=== PATIENT | female | born 1960 | race Caucasian/White ===

== ENCOUNTER 2018-05-20 11:56 | Emergency (ER) | payer OTHER ==
[~2018-05-20] VITALS: Ht 162.6 cm; Wt 63.5 kg
[2018-05-20] MEDS ORDERED: SODIUM CHLORIDE 0.9% 1,000 ML IV ONE (12:03)
[2018-05-20 12:28] LABS: Basophils # (auto) 0 uL; Basophils % (auto) 0.6 % (0.0-2.0); Eosinophils # (auto) 0.1 uL; Eosinophils % (auto) 1.7 % (0.0-7.0); Hematocrit 38.4 % (36.0-46.0); Hemoglobin 13.2 g/dL (12.2-16.2); Mean Corpuscular Hemoglobin 31.6 pg (28.0-32.0); Mean Corpuscular Hgb Conc. 34.5 g/dL (32.0-36.0); Mean Corpuscular Volume 91.6 fL (80.0-100.0); Monocytes # (auto) 0.6 uL; Neutrophils # (auto) 3.8 uL; Neutrophils % (auto) 58.7 % (37.0-80.0); Platelet Count (auto) 239 10^3/uL (140-450); Red Blood Cells 4.19 10^6/uL (4.0-5.20); Red Cell Distribution Width 12.9 % (11.8-14.3); White Blood Cell 6.5 10^3/uL (4.4-10.8)
[2018-05-20 13:04] LABS: Blood Urea Nitrogen 15 mg/dL (7-18); Chloride 100 mmol/L (98-107); Potassium 3.3 mmol/L (3.5-5.1); Sodium 136 mmol/L (136-145)
[2018-05-20 13:08] LABS: Alanine Aminotransferase 28 U/L (13-56); Albumin 4.3 g/dL (3.4-5.0); Anion Gap 9 (5-15); Aspartate Aminotransferase 27 U/L (15-37); BUN/Creatinine Ratio 10.6; Blood Alcohol < 3.0 mg/dL (0-5); Calcium 9.1 mg/dL (8.5-10.1); Carbon Dioxide 27 mmol/L (21-32); GFR African American 49 mL/min; GFR Non-African American 40 mL/min; Glucose 104 mg/dL (74-106)
[2018-05-20 13:10] LABS: Alkaline Phosphatase 58 U/L (45-117); Bilirubin, Total 0.8 mg/dL (0.2-1.0); Total Protein 7.9 g/dL (6.4-8.2)
[2018-05-20 13:11] LABS: Alcohol, Urine < 3.0 mg/dL (0-5); Amphetamine Screen, Urine NEGATIVE (NEGATIVE); Barbiturate Scree,Urine NEGATIVE (NEGATIVE); Benzodiazephine Screen, Urine NEGATIVE (NEGATIVE); Cannabinoid Screen, Urine POSITIVE (NEGATIVE); Cocaine Screen, Urine NEGATIVE (NEGATIVE); Opiate Scree,Urine NEGATIVE (NEGATIVE); Phencyclidine Screen, Urine NEGATIVE (NEGATIVE)
[2018-05-20 13:12] LABS: Salicylate < 1.7 mg/dL (2.8-20.0)
[2018-05-20 13:14] LABS: Acetaminophen < 2.0 ug/mL (10-30)
[2018-05-20] MEDS ORDERED: ALPRAZolam 0.5 MG TAB PO ONE (18:30)
[2018-05-20 22:33] VITALS: BP 134/75
[2018-05-21] MEDS ORDERED: QUEtiapine FUMARATE 25 MG TAB PO ONE (07:00)
[2018-05-21] MEDS ORDERED: QUEtiapine FUMARATE 100 MG TAB PO ONE (18:00)
== END 2018-05-20 22:33 | disposition short-term general hospital (02) ==
LOC: EDBD 11:56 → ER 11:56
DX: R45.851 Suicidal ideations (principal); F10.10 Alcohol abuse, uncomplicated; F20.9 Schizophrenia, unspecified; I50.9 Heart failure, unspecified; F31.9 Bipolar disorder, unspecified; F17.210 Nicotine dependence, cigarettes, uncomplicated; F12.90 Cannabis use, unspecified, uncomplicated; Z90.49 Acquired absence of other specified parts of digestive tract; Z90.710 Acquired absence of both cervix and uterus
CPT/HCPCS: 36415; 80053; 80307; 80320; 80329; 85025; 94761

== ENCOUNTER 2022-01-03 06:52 | Inpatient (IN) | payer OTHER ==
[~2022-01-03] VITALS: Ht 165.1 cm; Wt 80.0 kg
[2022-01-03] MEDS ORDERED: ONDANSETRON HCL 4 MG/2 ML VIAL IV ONE (08:00)
[2022-01-03] MEDS ORDERED: SODIUM CHLORIDE 0.9% 1,000 ML IV ONE (08:00)
[2022-01-03] MEDS ORDERED: HYDROmorphone HCL 2 MG/ML VL/or syr IV ONE (08:00)
[2022-01-03 08:22] LABS: Basophils # (auto) 0 10 ^3/uL (0-0.2); Basophils % (auto) 0.1 % (0.0-2.0); Eosinophils # (auto) 0 10 ^3/uL (0-0.8); Eosinophils % (auto) 0.1 % (0.0-7.0); Hematocrit 38.2 % (36.0-46.0); Hemoglobin 12.8 g/dL (12.2-16.2); Lymphocytes # (auto) 1.4 10 ^3/uL (0.4-5.4); Mean Corpuscular Hemoglobin 31.4 pg (28.0-32.0); Mean Corpuscular Hgb Conc. 33.6 g/dL (32.0-36.0); Mean Corpuscular Volume 93.6 fL (80.0-100.0); Monocytes # (auto) 0.7 10 ^3/uL (0-1.3); Monocytes % (auto) 7.5 % (0.0-12.0); Neutrophils % (auto) 77.3 % (37.0-80.0); Red Blood Cells 4.08 10^6/uL (4.0-5.20); Red Cell Distribution Width 14.7 % (11.8-14.3); White Blood Cell 9.1 10^3/uL (4.4-10.8)
[2022-01-03 08:23] LABS: Albumin 3.8 g/dL (3.4-5.0); Calcium 8.6 mg/dL (8.5-10.1); Potassium 3.9 mmol/L (3.5-5.1)
[2022-01-03 08:26] LABS: BUN/Creatinine Ratio 16.9; Bilirubin, Total 0.6 mg/dL (0.2-1.0); Total Protein 7.2 g/dL (6.4-8.2)
[2022-01-03 08:30] LABS: INR 0.99 (0.9-1.15); Partial Thromboplastin Time 24.4 sec (23.6-33.0)
[2022-01-03] MEDS ORDERED: SODIUM CHLORIDE 0.9% 1,000 ML IV SCH (11:00)
[2022-01-03] MEDS ORDERED: DOCUSATE SOD 100 MG CAP PO PRN (11:00)
[2022-01-03] MEDS ORDERED: HEPARIN SODIUM (PORCINE) 5000 UNITS/ML 1ML VIAL IV ONE ×2 (11:00→12:00)
[2022-01-03] MEDS ORDERED: ONDANSETRON HCL 4 MG/2 ML VIAL IV PRN (11:00)
[2022-01-03] MEDS ORDERED: NITROGLYCERIN 0.4 MG SL TAB SL PRN (11:00)
[2022-01-03] MEDS ORDERED: ALUM & MAG HYDROX-SIMETH LIQ(MAALOX) 30 ML PO PRN (11:00)
[2022-01-03] MEDS ORDERED: ACETAMINOPHEN 325 MG TAB PO PRN (11:00)
[2022-01-03] MEDS ORDERED: MORPHINE SULFATE INJ 2 MG/ml SYRG IV PRN (11:00)
[2022-01-03] MEDS: HYDROcodone-ACET 5/325MG TAB PO PRN ×2 (11:25→19:31)
[2022-01-03 11:30] LABS: Urine Bacteria NONE SEEN /hpf (None Seen); Urine Blood Negative /uL (Negative); Urine Mucus FEW (None Seen); Urine Specific Gravity 1.022 (1.001-1.035); Urine WBC 13 /hpf (0 - 5)
[2022-01-03] MEDS ORDERED: HEPARIN DRIP/D5W 100UNITS/ML 250 ML IV SCH (11:45)
[2022-01-03] MEDS ORDERED: ASPirin 325 MG TAB PO ONE (12:00)
[2022-01-03] MEDS ORDERED: DEXTROSE (50%) 50ML SYRG IV PRN (12:00)
[2022-01-03 12:51] LABS: Cholesterol 168 mg/dL (< 200)
[2022-01-03 12:54] LABS: HDL Cholesterol 79 mg/dL (40-59); LDL Cholesterol 62 mg/dL (< 100); Triglycerides 251 mg/dL (< 150)
[2022-01-03 13:52] LABS: Amphetamine Screen, Urine NEGATIVE (NEGATIVE); Barbiturate Scree,Urine NEGATIVE (NEGATIVE); Benzodiazephine Screen, Urine NEGATIVE (NEGATIVE); Cannabinoid Screen, Urine POSITIVE (NEGATIVE); Cocaine Screen, Urine NEGATIVE (NEGATIVE); Opiate Scree,Urine NEGATIVE (NEGATIVE); Phencyclidine Screen, Urine NEGATIVE (NEGATIVE)
[2022-01-03] MEDS ORDERED: RIS1T PO (13:52)
[2022-01-03] MEDS ORDERED: BUPR200T2 PO (13:52)
[2022-01-03] MEDS ORDERED: OLME20TA53 PO (13:52)
[2022-01-03] MEDS ORDERED: FAMO-68 PO (13:52)
[2022-01-03] MEDS ORDERED: ESCI20TA PO (13:52)
[2022-01-03] MEDS ORDERED: OXCA600T3 PO (13:52)
[2022-01-03] MEDS ORDERED: ROSU5TAB5 PO (13:52)
[2022-01-03] MEDS ORDERED: FOLIC ACID 1 MG, MULTIPLE VITAMIN 10 ML, MAGNESIUM SULF SDV 50% 8 MEQ, THIAMINE INJ 100... INJ ONE ×5 (14:45)
[2022-01-03] MEDS: MORPHINE SULFATE INJ 2 MG/ml SYRG IV PRN ×2 (16:08→21:58)
[2022-01-03] MEDS: InsuLIN REG 1unit/0.01ml Soln (100units/ml) SC SCH ×2 (17:00→21:56)
[2022-01-03] MEDS: ACCU-CHEK COMFORT CURVE STRIP VI SCH ×2 (19:15→21:57)
[2022-01-03 19:16] VITALS: BP 130/67
[2022-01-03] MEDS: HEPARIN SODIUM (PORCINE) 5000 UNITS/ML 1ML VIAL SC SCH (21:59)
[2022-01-03 22:00] VITALS: BP 115/62
[2022-01-03] MEDS ORDERED: CARVEDILOL 3.125 MG TAB PO SCH (22:00)
[2022-01-03] MEDS ORDERED: TEMAZEPAM 15 MG CAP PO ONE (23:45)
[2022-01-04] VITALS (7 sets, daily range): BP systolic 125–147; BP diastolic 64–87
[2022-01-04] MEDS: HYDROcodone-ACET 5/325MG TAB PO PRN ×5 (00:34→21:53)
[2022-01-04] MEDS: MORPHINE SULFATE INJ 2 MG/ml SYRG IV PRN ×2 (03:40→08:17)
[2022-01-04] MEDS: ACCU-CHEK COMFORT CURVE STRIP VI SCH ×2 (05:55→11:07)
[2022-01-04] MEDS: InsuLIN REG 1unit/0.01ml Soln (100units/ml) SC SCH ×2 (05:55→11:08)
[2022-01-04] MEDS: ASPirin 81 mg TAB PO SCH (10:24)
[2022-01-04] MEDS: ATORVASTATIN 20 MG TAB PO SCH (10:24)
[2022-01-04] MEDS: HEPARIN SODIUM (PORCINE) 5000 UNITS/ML 1ML VIAL SC SCH ×2 (10:28→21:42)
[2022-01-04] MEDS: HYDROmorphone HCL 2 MG/ML VL/or syr IV PRN ×2 (13:19→18:54)
[2022-01-04] MEDS ORDERED: SODIUM CHLORIDE 0.9% 1,000 ML IV SCH (15:45)
[2022-01-05] MEDS: HYDROmorphone HCL 2 MG/ML VL/or syr IV PRN ×4 (02:05→16:24)
[2022-01-05 05:00] VITALS: BP 123/73
[2022-01-05 07:44] LABS: Basophils # (auto) 0 10 ^3/uL (0-0.2); Basophils % (auto) 0.5 % (0.0-2.0); Eosinophils # (auto) 0.1 10 ^3/uL (0-0.8); Eosinophils % (auto) 1.9 % (0.0-7.0); Hematocrit 28.7 % (36.0-46.0); Hemoglobin 9.6 g/dL (12.2-16.2); Lymphocytes # (auto) 1.6 10 ^3/uL (0.4-5.4); Lymphocytes % (auto) 27.5 % (10.0-50.0); Mean Corpuscular Hemoglobin 31.3 pg (28.0-32.0); Mean Corpuscular Hgb Conc. 33.6 g/dL (32.0-36.0); Monocytes # (auto) 0.5 10 ^3/uL (0-1.3); Monocytes % (auto) 9.6 % (0.0-12.0); Neutrophils # (auto) 3.5 10 ^3/uL (1.6-8.6); Neutrophils % (auto) 60.5 % (37.0-80.0); Red Blood Cells 3.08 10^6/uL (4.0-5.20); White Blood Cell 5.7 10^3/uL (4.4-10.8)
[2022-01-05 08:04] LABS: BUN/Creatinine Ratio 20.9; Calcium 8.2 mg/dL (8.5-10.1); Magnesium 2.2 mg/dL (1.6-2.6); Potassium 3.4 mmol/L (3.5-5.1)
[2022-01-05 08:50] VITALS: BP 124/73
[2022-01-05] MEDS: HYDROcodone-ACET 5/325MG TAB PO PRN ×2 (09:26→19:55)
[2022-01-05] MEDS: SACUBITRIL-VALSARTAN 24mg/26mg TAB PO SCH ×2 (10:00→21:42)
[2022-01-05] MEDS ORDERED: POTASSIUM CHL 20 Meq TABLET PO ONE (10:00)
[2022-01-05] MEDS ORDERED: OXCA300T26 PO (14:27)
[2022-01-05] MEDS ORDERED: OLME1TAB69 PO (14:27)
[2022-01-05] MEDS ORDERED: BUPR300T28 PO (14:27)
[2022-01-05] MEDS: SODIUM CHLORIDE 0.9% 1,000 ML IV SCH (14:45)
[2022-01-05] MEDS: FOLIC ACID 1 MG, MULTIPLE VITAMIN 10 ML, MAGNESIUM SULF SDV 50% 8 MEQ, THIAMINE INJ 100... INJ SCH ×5 (16:00)
[2022-01-05] MEDS: ASPirin 81 mg TAB PO SCH (16:10)
[2022-01-05] MEDS: ATORVASTATIN 20 MG TAB PO SCH (16:15)
[2022-01-05] MEDS: HEPARIN SODIUM (PORCINE) 5000 UNITS/ML 1ML VIAL SC SCH ×2 (16:20→21:43)
[2022-01-05 17:58] VITALS: BP 126/72
[2022-01-05] MEDS: buPROPion HCL 75 MG TAB PO SCH (18:29)
[2022-01-05] MEDS: OXcarbazepine 300 MG TAB PO SCH (21:42)
[2022-01-05] MEDS: LORazepam 0.5 MG TAB PO PRN (21:58)
[2022-01-05 22:00] VITALS: BP 136/60
[2022-01-06] MEDS: HYDROcodone-ACET 5/325MG TAB PO PRN ×5 (01:51→20:48)
[2022-01-06] MEDS: SODIUM CHLORIDE 0.9% 1,000 ML IV SCH (01:51)
[2022-01-06 05:00] VITALS: BP 121/66
[2022-01-06] MEDS: buPROPion HCL 75 MG TAB PO SCH ×2 (05:43→18:47)
[2022-01-06 06:51] LABS: Hematocrit 25.6 % (36.0-46.0); Hemoglobin 9.1 g/dL (12.2-16.2)
[2022-01-06 07:06] LABS: BUN/Creatinine Ratio 14.1; Calcium 8.7 mg/dL (8.5-10.1); Magnesium 2.2 mg/dL (1.6-2.6); Potassium 3.4 mmol/L (3.5-5.1)
[2022-01-06 09:00] VITALS: BP 116/67
[2022-01-06] MEDS: OXcarbazepine 300 MG TAB PO SCH ×2 (09:28→23:54)
[2022-01-06] MEDS: ATORVASTATIN 20 MG TAB PO SCH (09:28)
[2022-01-06] MEDS: risperiDONE 1 MG TAB PO SCH (09:29)
[2022-01-06] MEDS: SACUBITRIL-VALSARTAN 24mg/26mg TAB PO SCH ×2 (09:29→23:54)
[2022-01-06] MEDS: ASPirin 81 mg TAB PO SCH (09:29)
[2022-01-06] MEDS: HEPARIN SODIUM (PORCINE) 5000 UNITS/ML 1ML VIAL SC SCH ×2 (09:32→23:55)
[2022-01-06] MEDS ORDERED: POTASSIUM CHL 20 Meq TABLET PO ONE (12:30)
[2022-01-06] MEDS ORDERED: PANTOPRAZOLE 40 MG/10 ML VIAL INJ IV ONE (12:45)
[2022-01-06 13:00] VITALS: BP 101/52
[2022-01-06] MEDS: FOLIC ACID 1 MG, MULTIPLE VITAMIN 10 ML, MAGNESIUM SULF SDV 50% 8 MEQ, THIAMINE INJ 100... INJ SCH ×5 (14:19)
[2022-01-06 15:35] LABS: % Iron Saturation 8.3 % (15-50)
[2022-01-06 17:00] VITALS: BP 94/55
[2022-01-06] MEDS: HYDROmorphone HCL 2 MG/ML VL/or syr IV PRN (18:17)
[2022-01-06 22:00] VITALS: BP 102/59
[2022-01-07] MEDS: HYDROcodone-ACET 5/325MG TAB PO PRN ×2 (01:59→06:33)
[2022-01-07 05:00] VITALS: BP 110/62
[2022-01-07] MEDS: buPROPion HCL 75 MG TAB PO SCH ×2 (06:34→18:39)
[2022-01-07 08:27] LABS: Hematocrit 28.5 % (36.0-46.0); Hemoglobin 9.5 g/dL (12.2-16.2)
[2022-01-07 08:32] LABS: Magnesium 2.1 mg/dL (1.6-2.6); Potassium 3.6 mmol/L (3.5-5.1)
[2022-01-07] MEDS: HYDROmorphone HCL 2 MG/ML VL/or syr IV PRN ×4 (08:38→21:43)
[2022-01-07 09:11] VITALS: BP 147/74
[2022-01-07] MEDS: risperiDONE 1 MG TAB PO SCH (09:15)
[2022-01-07] MEDS: PANTOPRAZOLE 40 MG/10 ML VIAL INJ IV SCH (09:15)
[2022-01-07] MEDS: ASPirin 81 mg TAB PO SCH (09:15)
[2022-01-07] MEDS: ATORVASTATIN 20 MG TAB PO SCH (09:16)
[2022-01-07] MEDS: OXcarbazepine 300 MG TAB PO SCH ×2 (09:16→21:30)
[2022-01-07] MEDS: HEPARIN SODIUM (PORCINE) 5000 UNITS/ML 1ML VIAL SC SCH ×2 (09:18→21:29)
[2022-01-07] MEDS: SACUBITRIL-VALSARTAN 24mg/26mg TAB PO SCH ×2 (09:18→21:29)
[2022-01-07 13:00] VITALS: BP 59/74
[2022-01-07] MEDS: FOLIC ACID 1 MG, MULTIPLE VITAMIN 10 ML, MAGNESIUM SULF SDV 50% 8 MEQ, THIAMINE INJ 100... INJ SCH ×5 (13:08)
[2022-01-07 17:00] VITALS: BP 115/62
[2022-01-07 22:00] VITALS: BP 111/62
[2022-01-07] MEDS: LORazepam 0.5 MG TAB PO PRN (23:58)
[2022-01-08] MEDS: HYDROmorphone HCL 2 MG/ML VL/or syr IV PRN ×2 (02:02→06:14)
[2022-01-08 05:00] VITALS: BP 111/61
[2022-01-08] MEDS: buPROPion HCL 75 MG TAB PO SCH (06:14)
[2022-01-08 09:00] VITALS: BP 114/65
[2022-01-08] MEDS: PANTOPRAZOLE 40 MG/10 ML VIAL INJ IV SCH (09:16)
[2022-01-08] MEDS: risperiDONE 1 MG TAB PO SCH (09:16)
[2022-01-08] MEDS: OXcarbazepine 300 MG TAB PO SCH (09:16)
[2022-01-08] MEDS: ATORVASTATIN 20 MG TAB PO SCH (09:16)
[2022-01-08] MEDS: SACUBITRIL-VALSARTAN 24mg/26mg TAB PO SCH (09:16)
[2022-01-08] MEDS: ASPirin 81 mg TAB PO SCH (09:16)
[2022-01-08] MEDS: HEPARIN SODIUM (PORCINE) 5000 UNITS/ML 1ML VIAL SC SCH (09:18)
[2022-01-08] MEDS: HYDROcodone-ACET 5/325MG TAB PO PRN (10:34)
[2022-01-08 11:29] VITALS: BP 114/65
[2022-01-08] MEDS ORDERED: MAGNESIUM SULFATE 1GM/100ML 100 ML IV ONE (13:30)
[2022-01-08] MEDS: FOLIC ACID 1 MG, MULTIPLE VITAMIN 10 ML, MAGNESIUM SULF SDV 50% 8 MEQ, THIAMINE INJ 100... INJ SCH ×5 (13:45)
== END 2022-01-08 17:14 | disposition short-term general hospital (02) | DRG 562 ==
LOC: ER 06:52 → EDBD 06:52 → TELE 11:01 → TELE-WESTW 17:55
PROVIDERS: ADMIT Family Medicine; ATTEND Internal Medicine
DX: S42.211A Unspecified displaced fracture of surgical neck of right humerus, initial encounter for closed fracture (principal); I21.A1 Myocardial infarction type 2; N17.0 Acute kidney failure with tubular necrosis; I50.22 Chronic systolic (congestive) heart failure; F10.129 Alcohol abuse with intoxication, unspecified; E87.6 Hypokalemia; D64.9 Anemia, unspecified; F12.90 Cannabis use, unspecified, uncomplicated; E78.5 Hyperlipidemia, unspecified; F17.210 Nicotine dependence, cigarettes, uncomplicated; F32.A Depression, unspecified; R07.89 Other chest pain; F41.9 Anxiety disorder, unspecified; M54.9 Dorsalgia, unspecified; F20.9 Schizophrenia, unspecified; I11.0 Hypertensive heart disease with heart failure; Z82.49 Family history of ischemic heart disease and other diseases of the circulatory system; W01.0XXA Fall on same level from slipping, tripping and stumbling without subsequent striking against object, initial encounter; Z90.710 Acquired absence of both cervix and uterus; Z91.51 Personal history of suicidal behavior; Z98.84 Bariatric surgery status; Z71.41 Alcohol abuse counseling and surveillance of alcoholic; Y93.89 Activity, other specified; Y92.89 Other specified places as the place of occurrence of the external cause; Y99.8 Other external cause status; Z90.49 Acquired absence of other specified parts of digestive tract
CPT/HCPCS: 36415; 71045; 71250; 73060; 73200; 80048; 80053; 80061; 80307; 81001; 82306; 82962; 83036; 83540; 83550; 83735; 83880; 84132; 84443; 84484; 85014; 85018; 85025; 85610; 85730; 93005; 93306; 96361; 96374; 96375; 99291; C9113; G0378; J2405